=== PATIENT | female | born 1985 | race Caucasian/White ===

== ENCOUNTER → 2017-09-25 09:48 | Outpatient (CLI) | payer SELFPAY ==
[2017-09-25 10:59] LABS: Free T4 (Free Thyroxine) 1.23 ng/dl (0.76-1.46)
[2017-09-26 17:00] LABS: Thyroid Peroxidase Antibodies 14 IU/mL (0-34)
[2017-09-29 06:05] LABS: Thyroid Stimulating Immunoglob <0.10 IU/L (0.00-0.55)
== END ==
PROVIDERS: Family Provider Emergency Medicine; PCP Nurse Practitioner Family; Visit Provider Otolaryngology
DX: E01.0 Iodine-deficiency related diffuse (endemic) goiter (principal); E04.1 Nontoxic single thyroid nodule
CPT/HCPCS: 36415; 83520; 84439; 84443; 86376

== ENCOUNTER → 2017-10-12 15:10 | Outpatient (CLI) | payer SELFPAY ==
--- NOTE | 2017-10-12 15:15 | US_ITS ---
US thyroid HISTORY: Thyroid enlargement with possible nodule ITS.REASON: thyroid enlargement ORDERING PHYSICIAN: Aldo Leon MD PATIENT AGE: 32 years Comparison: None FINDINGS: The right lobe is 4.6 x 1.4 x 2.2 cm. 10 mm well-circumscribed isoechoic solid-appearing nodule mid polar region 10 millimeter well-circumscribed hypoechoic nodule with isoechoic center in the mid polar region The left lobe is 4.4 x 1.7 x 1.7 cm. A 4 mm hypoechoic nodules present in the upper pole benign-appearing 5 mm neck hypo and isoechoic nodule lower pole. IMPRESSION: Enlarged thyroid gland with lateral nodules with low level of suspicion for malignancy
== END ==
PROVIDERS: Family Provider Emergency Medicine; PCP Nurse Practitioner Family; Visit Provider Otolaryngology
DX: E01.0 Iodine-deficiency related diffuse (endemic) goiter (principal); E04.1 Nontoxic single thyroid nodule
CPT/HCPCS: 76536

== ENCOUNTER → 2018-05-10 12:38 | Outpatient (CLI) | payer OTHER, SELFPAY ==
--- NOTE | 2018-05-10 12:52 | US_ITS ---
US thyroid HISTORY: Follow-up goiter and thyroid nodules ITS.REASON: goiter ORDERING PHYSICIAN: Aldo Leon MD PATIENT AGE: 33 years Comparison: 10/12/2017 FINDINGS: The right lobe is 4.7 x 1.3 x 1.5 cm. There are 2 well-circumscribed isoechoic nodules in the right lobe central aspect with hypoechoic halos. These measure 11 x 7 mm and 7 x 5 mm. The larger nodule shows hypervascularity along the periphery. The left lobe is 4.4 x 1.1 x 1.5 cm. There is a 4 mm hypoechoic nodule in the upper pole. A 5 mm mixed nodule with cystic and solid component is noted in the lower pole. IMPRESSION: Bilateral thyroid nodules. The larger of the nodules on the right is not significant changed. There is been slight increase in size and the smaller nodule on the right and no significant change in the nodule in the left. There is low level of suspicion for malignancy of the nodules. Continued follow-up suggested
== END ==
PROVIDERS: PCP Nurse Practitioner Family; Visit Provider Otolaryngology
DX: E01.0 Iodine-deficiency related diffuse (endemic) goiter (principal); E04.9 Nontoxic goiter, unspecified
CPT/HCPCS: 76536

== ENCOUNTER → 2018-05-24 14:00 | Outpatient (CLI) | payer OTHER, SELFPAY ==
--- NOTE | 2018-05-24 14:04 | CA_ITS ---
PROCEDURE: 2-D M-mode and color Doppler study INDICATIONS FOR THE TEST: Chest pain COPD Heart Murmur Tobacco Smoking Palpitations Fatigue Syncope Edema HypertensionXDiabetes Mellitus Rheumatic Fever SOB VELAZQUEZ Obesity Hyperlipidemia Family History HD Additional History PATIENT INFORMATION HEIGHT: 64 WEIGHT:160 GENDER: Female B/P:117/80 2-D/M-MODE INTERPRETATION: 2-D MEASUREMENTS OBSERVED VALUES IN CMS Right Ventricular Dimension (RVDd) 2.0 Interventricular Septum (Thickness)(IVsd) .6 Left Ventricular Internal Dimensions(LVIDd) 5.6 Left Ventricular Posterior Wall (Thickness)(LVPWd) .9 Aortic Root 3.0 Aortic Cusp Separation 1.9 Left Atrial Dimensions (LAD) 3.2 2D 1. Left atrium is normal size, left ventricle is normal size, there is no concentric left ventricular hypertrophy, visually estimated ejection fraction of 55% with no regional wall motion abnormality. 2. The right atrium and right ventricle are normal size and contractility. 3. The aortic valve is minimally thickened and fibrosed. 4. The mitral and tricuspid valvular grossly normal. 5. The pulmonic valve is poorly visualized. 6. No significant pericardial effusion noted. DOPPLER INTERROGATION: Doppler interrogation of the aortic, mitral and tricuspid valvular presence of mild aortic, mild mitral and tricuspid regurgitation, tricuspid regurgitation jet velocity is inadequate for calculation of the right ventricular systolic pressure, diastolic parameters are within normal range. CONCLUSION: 1. Normal left ventricular size, preserved left ventricular systolic function, visually estimated ejection fraction of 55% with no regional wall motion abnormality, diastolic parameters are within normal range. 2. Mild aortic, mild mitral and tricuspid regurgitation 3. No significant pericardial effusion noted.
== END ==
PROVIDERS: PCP Nurse Practitioner Family; Visit Provider Internal Medicine
DX: I10 Essential (primary) hypertension (principal); I08.3 Combined rheumatic disorders of mitral, aortic and tricuspid valves; E07.9 Disorder of thyroid, unspecified; Z72.0 Tobacco use
CPT/HCPCS: 93306

== ENCOUNTER → 2018-10-01 12:28 | Outpatient (CLI) | payer OTHER, SELFPAY ==
[2018-10-01 13:30] LABS: Basophils % 0.3 % (0.1-2.0); Eosinophils # 0.1 K/mm3 (0.0-0.4); Eosinophils % 2.1 % (0.1-12.0); Hematocrit 40.8 % (37.0-47.0); Hemoglobin 12.4 g/dL (12.2-16.2); Lymphocytes # 1.8 K/mm3 (0.7-4.5); Lymphocytes % 30.9 % (10-50); Mean Corpuscular HGB Conc 30.3 g/dL (31.8-35.4); Mean Corpuscular Hemoglobin 27.4 pg (27.0-31.2); Mean Corpuscular Volume 90.4 fl (81-99); Mean Platelet Volume 6.4 fl (7.4-10.4); Monocytes # 0.3 K/mm3 (0.1-1.0); Monocytes % 5.3 % (1.7-9.3); Neutrophils # 3.6 K/mm3 (1.8-7.8); Neutrophils % 61.4 % (37.0-80.0); Platelet Count 382 K/mm3 (142-424); Red Blood Count 4.52 M/mm3 (4.20-5.40); Red Cell Distribution Width 13.3 % (11.5-17.5); White Blood Count 5.8 K/mm3 (4.8-10.8)
[2018-10-01 14:18] LABS: Alanine Aminotransferase 43 U/L (12-78); Albumin Level 3.5 gm/dL (3.4-5.0); Albumin/Globulin Ratio 1.1 (1.1-1.8); Alkaline Phosphatase 56 U/L (46-116); Aspartate Amino Transferase 18 U/L (15-37); Bilirubin,Total 0.5 mg/dL (0.2-1.0); Blood Urea Nitrogen 10 mg/dL (7-18); Calcium 8.7 mg/dL (8.5-10.1); Carbon Dioxide 28 mmol/L (21.0-32.0); Chloride 106 mmol/L (98-107); Creatinine,Serum 0.79 mg/dL (0.55-1.02); Estimated Glomerular Filt Rate 84 ml/min (>60); GFR (African American) 101 ML/MIN (>60); Globulin 3.1 gm/dl (1.3-3.2); Glucose 66 mg/dL (74-106); Sodium 145 mmol/L (136-145); T4 (Thyroxine) 8.3 ug/dl (4.7-13.3); Thyroid Stimulating Hormone 0.49 uIU/ml (0.358-3.740); Total Protein,Serum 6.6 gm/dL (6.4-8.2)
== END ==
PROVIDERS: Visit Provider Nurse Practitioner Family
DX: R68.89 Other general symptoms and signs (principal)
CPT/HCPCS: 36415; 80053; 84436; 84443; 85025

== ENCOUNTER → 2018-11-19 14:59 | Outpatient (CLI) | payer OTHER, SELFPAY ==
--- NOTE | 2018-11-19 15:05 | US_ITS ---
US thyroid HISTORY: Follow-up thyroid nodules ITS.REASON: Goiter ORDERING PHYSICIAN: Aldo Leon MD PATIENT AGE: 33 years Comparison: 05/10/2018 FINDINGS: The right lobe is 4.5 x 1.4 x 2.1 cm. There are multiple nodules present. 10 x 6 mm well-circumscribed isoechoic nodule mid polar region on the right. Just posterior to this is a 6 mm slightly hypoechoic nodule. These are unchanged. The left lobe is 4.3 x 1.6 x 1.8 cm. A mixed cystic and solid nodule is present in the lower pole measuring 6 mm unchanged. IMPRESSION: No change small bilateral thyroid nodules
[2018-11-19 18:03] LABS: T4 (Thyroxine) 10.6 ug/dl (4.7-13.3); Thyroid Stimulating Hormone 0.62 uIU/ml (0.358-3.740)
[2018-11-21 17:02] LABS: Thyroid Peroxidase Antibodies 13 IU/mL (0-34)
[2018-11-22 23:55] LABS: Thyroid Stimulating Immunoglob <0.10 IU/L (0.00-0.55)
== END ==
PROVIDERS: PCP Nurse Practitioner Family; Visit Provider Otolaryngology
DX: E04.9 Nontoxic goiter, unspecified (principal)
CPT/HCPCS: 36415; 76536; 84436; 84443; 84445; 86376

== ENCOUNTER → 2019-08-10 15:20 | Outpatient (CLI) | payer BC, SELFPAY ==
--- NOTE | 2019-08-10 15:20 | US_ITS ---
PROCEDURE: US THYROID CLINICAL INDICATION: Goiter COMPARISON: THY US thyroid from 11/19/2018 FINDINGS: The right lobe is 4.4 x 1.7 x 2.5 cm and the left lobe is 4.4 x 1.7 x 1.8 cm. There is a 9 x 4 mm slightly isoechoic nodule in the central aspect of the isthmus not significantly changed. Right lobe: Well-circumscribed 10 x 7 mm slightly hypoechoic nodule mid polar region unchanged, 6 mm hypoechoic nodule mid polar region unchanged Left lobe: 5 mm hypoechoic nodule lower pole unchanged with some increased echogenicity posteriorly IMPRESSION: Stable bilateral thyroid nodules. No significant change Dictated by: Curtis Gonzalez MD 08/10/2019 17:03 Electronically signed by Curtis Gonzalez MD in [facility] 08/10/2019 17:03
== END ==
PROVIDERS: PCP Nurse Practitioner Family; Visit Provider Otolaryngology
DX: E04.9 Nontoxic goiter, unspecified (principal)
CPT/HCPCS: 76536

== ENCOUNTER → 2020-02-17 13:21 | Outpatient (CLI) | payer BC, SELFPAY ==
--- NOTE | 2020-02-17 13:22 | US_ITS ---
PROCEDURE: US THYROID CLINICAL INDICATION: thyroid nodule Follow-up nodule COMPARISON: US US THYROID from 08/10/2019 FINDINGS: The right lobe is 4.7 x 1.2 x 2.5 cm. Left lobe is 4.4 x 1.5 x 1.8 cm. There is an isoechoic nodule involving the isthmus at 8 mm not significantly changed. There is a 9 x 7 mm stable isoechoic nodule in the mid polar region on the right and a 5 mm stable slightly hypoechoic nodule in the mid polar region on the right posteriorly. On the left there is a 5 mm hypoechoic nodule in the lower pole unchanged. IMPRESSION: Stable bilateral thyroid and isthmus nodules. Dictated by: Curtis Gonzalez MD 02/17/2020 16:05 Curtis Gonzalez MD in [facility] 02/17/2020 16:05
[2020-02-17 16:55] LABS: Free T4 (Free Thyroxine) 0.99 ng/dl (0.78-2.19)
[2020-02-17 17:08] LABS: Thyroid Stimulating Hormone 0.52 uIU/mL (0.465-4.68)
[2020-02-21 10:51] LABS: Calcitonin <2.0 pg/mL (0.0-5.0)
== END ==
PROVIDERS: PCP Nurse Practitioner Family; Visit Provider Otolaryngology
DX: E04.1 Nontoxic single thyroid nodule (principal)
CPT/HCPCS: 36415; 76536; 82308; 84439; 84443

== ENCOUNTER → 2020-03-01 12:32 | Outpatient (CLI) | payer OTHER, SELFPAY ==
--- NOTE | 2020-03-01 12:32 | US_ITS ---
PROCEDURE: US FNA THYROID CLINICAL INDICATION: Dominant nodule on the right COMPARISON: US US THYROID from 02/17/2020 TECHNIQUE: Pre biopsy scan once again demonstrates the solid nodule in the right lobe of the thyroid gland. Following obtaining informed consent, using aseptic technique and local anesthesia with buffered lidocaine, fine-needle aspiration was performed of the nodule of interest using sonographic guidance. 3 passes were made into the nodule with a 21 gauge needle. Specimen was given to cytology. The patient tolerated the procedure well without evidence of immediate complications and left the ultrasound suite in stable condition. FINDINGS: Solid appearing dominant nodule right lobe CYTOLOGY: Negative for malignant cells. Benign follicular nodule IMPRESSION: Uneventful ultrasound-guided fine needle aspiration of right lobe the thyroid gland showing benign findings. Dictated by: Curtis Gonzalez MD 03/23/2020 17:55 Curtis Gonzalez MD in [facility] 03/23/2020 17:55
== END ==
PROVIDERS: PCP Nurse Practitioner Family; Visit Provider Otolaryngology
DX: E04.1 Nontoxic single thyroid nodule (principal); E04.9 Nontoxic goiter, unspecified
CPT/HCPCS: 10005; 76942

== ENCOUNTER → 2020-08-27 13:55 | Outpatient (CLI) | payer OTHER, SELFPAY ==
--- NOTE | 2020-08-27 13:55 | US_ITS ---
PROCEDURE: US THYROID CLINICAL INDICATION: goiter COMPARISON: US US THYROID from 02/17/2020 US US FNA THYROID from 03/01/2020 FINDINGS: Remains an area of decreased echogenicity involving the isthmus of the thyroid centrally with some protrudes anteriorly raising the question of the small nodule not significantly changed. Previously noted well-circumscribed hypoechoic nodule in the medial aspect of the right lobe is once again noted at 10 x 7 mm not significantly changed. A small hypoechoic nodules present posterior to this nodule which measures 5 x 6 mm not significantly changed. In the left lobe there is a 5 x 4 mm mixed nodule unchanged. The right lobe is 4.5 x 1.7 cm in the left lobe is 4.4 x 1.2 cm. IMPRESSION: No change in the bilateral thyroid nodules. Dictated by: Curtis Gonzalez MD 08/27/2020 17:55 Curtis Gonzalez MD in [facility] 08/27/2020 17:55
[2020-08-27 15:34] LABS: Alanine Aminotransferase 14 U/L (12-78); Albumin Level 4.4 g/dl (3.5-5.0); Albumin/Globulin Ratio 1.9 (1.1-1.8); Alkaline Phosphatase 53 U/L (38-126); Anion Gap 9.2 mEq/L (5-15); Aspartate Amino Transferase 21 U/L (14-36); Bilirubin,Total 0.5 mg/dl (0.2-1.3); Blood Urea Nitrogen 8 mg/dl (7-17); Calcium 9.4 mg/dl (8.4-10.2); Carbon Dioxide 26 mmol/L (22.0-30.0); Chloride 108 mmol/L (98-107); Cholesterol 128 mg/dl (140-200); Estimated Glomerular Filt Rate 95 ml/min (>60); GFR (African American) 115 ML/MIN (>60); Globulin 2.3 g/dL (1.3-3.2); Glucose 92 mg/dl (74-100); HDL Cholesterol 32 mg/dl (40-60); Potassium 4.2 mmoL/L (3.5-5.1); Sodium 139 mmol/L (136-145); Total Protein,Serum 6.7 g/dl (6.3-8.2); Triglycerides 282 mg/dl (30-150); VLDL Cholesterol 56 mg/dL (0-40)
[2020-08-27 15:50] LABS: 25-OH Vitamin D, Total 42.8 ng/mL (30-100)
[2020-08-27 15:51] LABS: T4 (Thyroxine) 9.6 ug/dl (5.53-11.0)
[2020-08-27 16:05] LABS: Thyroid Stimulating Hormone 0.69 uIU/mL (0.465-4.68)
[2020-08-27 19:03] LABS: Basophils % 0.3 % (0.1-2.0); Eosinophils # 0.1 K/mm3 (0.0-0.4); Eosinophils % 1.8 % (0.1-12.0); Hematocrit 40.2 % (37.0-47.0); Lymphocytes # 2.1 K/mm3 (0.7-4.5); Mean Corpuscular HGB Conc 34.8 g/dL (31.8-35.4); Mean Corpuscular Hemoglobin 30.5 pg (27.0-31.2); Mean Corpuscular Volume 87.7 fl (81-99); Mean Platelet Volume 8.5 fl (7.4-10.4); Monocytes # 0.5 K/mm3 (0.1-1.0); Monocytes % 6.1 % (1.7-9.3); Neutrophils # 5.3 K/mm3 (1.8-7.8); Neutrophils % 65.9 % (37.0-80.0); Platelet Count 420 K/mm3 (142-424); Red Blood Count 4.59 M/mm3 (4.20-5.40); White Blood Count 8.1 K/mm3 (4.8-10.8)
== END ==
PROVIDERS: PCP Nurse Practitioner Family; Visit Provider Otolaryngology
DX: E04.9 Nontoxic goiter, unspecified (principal); I10 Essential (primary) hypertension; E66.9 Obesity, unspecified; Z68.30 Body mass index [BMI] 30.0-30.9, adult
CPT/HCPCS: 36415; 76536; 80053; 80061; 82306; 84436; 84443; 85025

== ENCOUNTER → 2020-08-27 14:18 | Outpatient (CLI) | payer OTHER, SELFPAY | PROVIDERS: Visit Provider Otolaryngology | DX: E04.9 Nontoxic goiter, unspecified (principal) | CPT/HCPCS: 36415; 80053; 80061; 82306; 84436; 84443; 85025 ==

== ENCOUNTER → 2021-01-01 14:27 | Outpatient (CLI) | payer OTHER, SELFPAY ==
[2021-01-01 14:40] LABS: Basophils # 0.1 K/mm3 (0-0.2); Basophils % 0.6 % (0.1-2.0); Eosinophils # 0.2 K/mm3 (0.0-0.4); Hematocrit 41.7 % (37.0-47.0); Lymphocytes # 2.4 K/mm3 (0.7-4.5); Lymphocytes % 29.1 % (10-50); Mean Corpuscular HGB Conc 33.6 g/dL (31.8-35.4); Mean Corpuscular Hemoglobin 30.4 pg (27.0-31.2); Mean Corpuscular Volume 90.5 fl (81-99); Mean Platelet Volume 9.1 fl (7.4-10.4); Monocytes # 0.4 K/mm3 (0.1-1.0); Monocytes % 4.8 % (1.7-9.3); Neutrophils # 5.2 K/mm3 (1.8-7.8); Neutrophils % 63.4 % (37.0-80.0); Platelet Count 471 K/mm3 (142-424); Red Blood Count 4.61 M/mm3 (4.20-5.40); Red Cell Distribution Width 13.1 % (11.5-17.5); White Blood Count 8.2 K/mm3 (4.8-10.8)
[2021-01-01 16:39] LABS: 25-OH Vitamin D, Total 39.5 ng/mL (30-100)
[2021-01-01 17:33] LABS: Chloride 107 mmol/L (98-107); Potassium 3.8 mmoL/L (3.5-5.1); Sodium 141 mmol/L (136-145)
[2021-01-01 17:35] LABS: Alanine Aminotransferase 22 U/L (12-78); Aspartate Amino Transferase 29 U/L (14-36); Blood Urea Nitrogen 14 mg/dl (7-17); Estimated Glomerular Filt Rate 140 ml/min (>60); GFR (African American) 170 ML/MIN (>60)
[2021-01-01 17:36] LABS: Albumin Level 4.1 g/dl (3.5-5.0); Albumin/Globulin Ratio 1.4 (1.1-1.8); Alkaline Phosphatase 70 U/L (38-126); Anion Gap 15.8 mEq/L (5-15); Bilirubin,Total 0.3 mg/dl (0.2-1.3); Calcium 9.1 mg/dl (8.4-10.2); Carbon Dioxide 22 mmol/L (22.0-30.0); Chol/HDL Ratio 3.5 (1-3.5); Cholesterol 143 mg/dl (140-200); Globulin 2.9 g/dL (1.3-3.2); Glucose 87 mg/dl (74-100); HDL Cholesterol 41 mg/dl (40-60); Triglycerides 84 mg/dl (30-150); VLDL Cholesterol 17 mg/dL (0-40)
[2021-01-01 17:48] LABS: Direct LDL Cholesterol 77.18 mg/dL (100-129)
[2021-01-01 17:54] LABS: T4 (Thyroxine) 11.4 ug/dl (5.53-11.0)
[2021-01-01 18:08] LABS: Thyroid Stimulating Hormone 0.65 uIU/mL (0.465-4.68)
== END ==
PROVIDERS: Visit Provider Nurse Practitioner Family
DX: E03.9 Hypothyroidism, unspecified (principal); E66.9 Obesity, unspecified; Z68.31 Body mass index [BMI] 31.0-31.9, adult
CPT/HCPCS: 80053; 80061; 82306; 84436; 84443; 85025